=== PATIENT | female | born 1980 | race Two or more races ===

== ENCOUNTER 2021-07-06 12:39 | Emergency (ER) | payer BC, OTHER ==
[~2021-07-06] VITALS: Ht 170.2 cm; Wt 108.9 kg
[2021-07-06] MEDS ORDERED: METH4PAK PO (15:14)
[2021-07-06] MEDS ORDERED: ZINC220C8 PO (15:14)
[2021-07-06] MEDS ORDERED: AZIT1POW PO (15:14)
[2021-07-06 15:41] VITALS: BP 115/67
== END 2021-07-06 15:51 | disposition home or self-care (01) ==
LOC: ER 12:39
DX: U07.1 COVID-19 (principal); J12.82 Pneumonia due to coronavirus disease 2019; Z90.49 Acquired absence of other specified parts of digestive tract
CPT/HCPCS: 71045